=== PATIENT | male | born 1960 | race Caucasian/White ===

== ENCOUNTER 2016-04-12 12:46 | Outpatient (CLI) | payer MEDICARE | END 2016-04-12 12:47 | disposition home or self-care (01) | DX: M47.22 Other spondylosis with radiculopathy, cervical region (principal); M50.11 Cervical disc disorder with radiculopathy, high cervical region; M51.14 Intervertebral disc disorders with radiculopathy, thoracic region; D17.79 Benign lipomatous neoplasm of other sites; M43.16 Spondylolisthesis, lumbar region; M51.16 Intervertebral disc disorders with radiculopathy, lumbar region; M47.26 Other spondylosis with radiculopathy, lumbar region ==